=== PATIENT | male | born 1995 | race Caucasian/White ===

== ENCOUNTER 2020-04-27 15:45 | Outpatient (CLI) | payer BC, SELFPAY ==
[2020-04-27 19:52] LABS: SARS-CoV-2 Ag Negative (Negative)
== END 2020-04-27 15:46 | disposition home or self-care (01) ==
LOC: CHSLAB 15:53
PROVIDERS: PCP Family Medicine; Visit Provider Family Medicine
DX: J02.9 Acute pharyngitis, unspecified (principal); Z20.822 Contact with and (suspected) exposure to COVID-19
CPT/HCPCS: 87081; 87426; 87880; C9803